=== PATIENT | female | born 1930 | race Caucasian/White ===

== ENCOUNTER 2018-03-19 07:08 | Emergency (ER) | payer MEDICARE ==
[2018-03-19 07:21] VITALS: O2SAT 98
--- NOTE | 2018-03-19 07:38 | ERPHSYRPT ---
- History of Present Illness Time Seen by Provider: 03/19/18 07:30 Source: patient Exam Limitations: no limitations Patient Subjective Stated Complaint: pt fell about a week ago, she lost balance going to bathroom in middle of night and fell against tub, no co pain to left hip Triage Nursing Assessment: pt arrived per wc, alert, resp easy, skin w/d/p. no bruising noted . Physician History: Patient states, she lost her balance and fell at 2 AM in her bathroom about a week ago [facility]. She fell on her buttock, started c/o left hip pain, increasing, when walking. She denies head or other injury, no LOC, headaches, chest pain, vomiting, or other complaints. She has been able to ambulate with walker, she has a history of hip replacement. Timing/Duration: week(s) (1) Occured at: home Context: fall Quality: sharpness Hip Pain Location: hip (L) Severity of Pain-Max: severe Severity of Pain-Current: mild Modifying Factors: Improves With: immobilization, movement Symptoms prior to fall: none Associated Symptoms: denies symptoms Allergies/Adverse Reactions: Penicillins Allergy (Verified 03/19/18 07:22) Home Medications: Celecoxib [Celebrex] 50 mg DAILY 03/19/18 [History] Glipizide [Glipizide ER] 2.5 mg DAILY 03/19/18 [History] Levothyroxine Sodium 25 mcg DAILY 03/19/18 [History] Metformin HCl 1,000 mg BID 03/19/18 [History] Pioglitazone HCl 30 mg DAILY 03/19/18 [History] Hx Influenza Vaccination/Date Given: No Hx Pneumococcal Vaccination/Date Given: No Immunizations Up to Date: Yes - Review of Systems Constitutional: No Symptoms Musculoskeletal: Fall, Other (left hip pain) All Other Systems: Reviewed and Negative - Past Medical History Pertinent Past Medical History: Yes Cardiac History: Hypertension Endocrine Medical History: Diabetes Type II Musculoskeletal History: Osteoporosis - Past Surgical History Past Surgical History: Yes Musculoskeletal: Orthopedic Surgery Other Surgical History: left hip replaced,foot surgery,carpal tunnel - Social History Smoking Status: Never smoker Exposure to second hand smoke: No Drug Use: none Patient Lives Alone: No - Female History Hx Last Menstrual Period: post Hx Now: No - Nursing Vital Signs Nursing Vital Signs: Initial Vital Signs Temperature 98.6 F 03/19/18 07:21 Pulse Rate 89 03/19/18 07:21 Respiratory Rate 16 03/19/18 07:21 Blood Pressure 153/70 03/19/18 07:21 O2 Sat by Pulse Oximetry 98 03/19/18 07:21 Pain Scale Pain Intensity 70 - Physical Exam General Appearance: no apparent distress Eye Exam: PERRL/EOMI Ears, Nose, Throat Exam: normal ENT inspection Neck Exam: normal inspection, non-tender Respiratory Exam: normal breath sounds, lungs clear, No chest tenderness Cardiovascular Exam: regular rate/rhythm, normal heart sounds Gastrointestinal Exam: soft, normal bowel sounds, No tenderness Back Exam: other (mild kyphosis), No CVA tenderness, No vertebral tenderness Extremity Exam: normal inspection, normal range of motion, other (mild posterior left hip tenderness, no swelling, bruises, or deformity, good distal pulses and sensation.) Neurologic Exam: alert, oriented x 3, normal mood/affect Skin Exam: normal color, warm, dry SpO2 Interpretation: normal SpO2: 98 Oxygen Delivery: Room Air - Course Nursing assessment & vital signs reviewed: Yes - Radiology Exams Left Hip X-ray Interpretation: Interpreted by me, Negative Ordered Tests: Active Orders 24 hr Category Date Time Status HIP UNI (2V) INCL PEL IF DONE Stat Exams 03/19/18 07:32 Taken - Progress Progress: unchanged Progress Note: 03/19/18 08:30 Pt has been comfortable, when lying, only c/o pain, when moving, she has been stable. I informed her about the X ray report, she is being discharged to rest and apply ice to painful area, take Motrin as needed and follow up with her PCP in 1 week, otherwise return if severe pain, swelling, sudden weakness, numbness of the lower extremity. Counseled pt/family regarding: diagnosis, need for follow-up, rad results - Departure Time of Disposition: 08:32 Departure Disposition: Home Clinical Impression: Contusion, hip Qualifiers: Encounter type: initial encounter Laterality: left Qualified Code(s): S70.02XA - Contusion of left hip, initial encounter Condition: Stable Critical Care Time: No Referrals: ANNA ROBIN MD [Primary Care Provider] - Instructions: Contusion (DC) Additional Instructions: Rest x 2-3 days, apply ice or cold compresses to painful area, return if severe pain, swelling, or sudden numbness, weakness of the leg! Prescriptions: Ibuprofen 200 mg [Motrin 200 mg] 400 mg PO Q6H PRN #15 tablet PRN Reason: Pain
[2018-03-19 08:59] VITALS: BP 145/57; PULSE 70
--- NOTE | 2018-03-19 09:09 | XRAY ---
Indication: Pain following fall. Comparison: Pelvis exam March 15, 2014. 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 No new/acute findings.
== END 2018-03-19 08:59 | disposition home or self-care (01) ==
LOC: ED 07:08
DX: S70.02XA Contusion of left hip, initial encounter (principal); M25.552 Pain in left hip; E11.9 Type 2 diabetes mellitus without complications; W01.198A Fall on same level from slipping, tripping and stumbling with subsequent striking against other object, initial encounter; Y93.F9 Activity, other caregiving; Y92.091 Bathroom in other non-institutional residence as the place of occurrence of the external cause; Z79.84 Long term (current) use of oral hypoglycemic drugs; Z79.899 Other long term (current) drug therapy
CPT/HCPCS: 73502; 99283

== ENCOUNTER 2018-11-03 08:21 | Emergency (ER) | payer MEDICARE ==
[2018-11-03] MEDS ORDERED: Sodium Chloride 0.9% 1000 ML 1,000 ML IV STA (08:30)
--- NOTE | 2018-11-03 08:37 | ERPHSYRPT ---
- History of Present Illness Time Seen by Provider: 11/03/18 08:34 Source: patient, family Patient Subjective Stated Complaint: PT states "I do not feel well.". Daughter states "she was diagnosed with a UTI a couple of weeks ago and she is on new medicine and she called me and said she was short of breath and having chills." Triage Nursing Assessment: PT alert and oriented X 3, skin pwd. PT ambulates with an unsteady gait, able to speak in clear full sentences. PT not a very good historian. Physician History: mild to mod one day hx of general weakness and confusion, hx uti, no injury, no fever, no NV, lives alone, no pain Allergies/Adverse Reactions: Penicillins Allergy (Verified 03/19/18 07:22) Home Medications: Cefdinir 300 mg PO DAILY 11/03/18 [History] Celecoxib [Celebrex] 200 mg PO DAILY 11/03/18 [History] Gabapentin 300 mg PO DAILY 11/03/18 [History] Glipizide [Glipizide ER] 2.5 mg PO DAILY 11/03/18 [History] Levothyroxine Sodium 25 mcg PO DAILY 11/03/18 [History] Pioglitazone HCl 30 mg PO DAILY 11/03/18 [History] Hx Tetanus, Diphtheria Vaccination/Date Given: No Hx Influenza Vaccination/Date Given: Yes Hx Pneumococcal Vaccination/Date Given: No Immunizations Up to Date: Yes - Review of Systems Constitutional: No Fever Eyes: No Vision Changes Ears, Nose, & Throat: No Symptoms Respiratory: No Cough, No Dyspnea Cardiac: No Chest Pain Abdominal/Gastrointestinal: No Abdominal Pain, No Vomiting Genitourinary Symptoms: Frequency Musculoskeletal: No Back Pain Skin: No Rash Neurological: Dizziness, No Focal Weakness, No Headache - Past Medical History Pertinent Past Medical History: Yes ENT History: Macular Degeneration Cardiac History: Hypertension Endocrine Medical History: Diabetes Type II Musculoskeletal History: Osteoporosis History: Other Other Medical History: UTI - Past Surgical History Past Surgical History: Yes Musculoskeletal: Orthopedic Surgery Other Surgical History: bilat hip replaced,foot surgery,carpal tunnel. hernia surgery - Social History Smoking Status: Never smoker Exposure to second hand smoke: No Drug Use: none Patient Lives Alone: Yes - Female History Hx Now: No - Nursing Vital Signs Nursing Vital Signs: Initial Vital Signs Temperature 97.1 F 11/03/18 08:24 Pulse Rate 69 05/07/19 08:24 Respiratory Rate 16 11/03/18 08:24 Blood Pressure 157/49 11/03/18 08:24 O2 Sat by Pulse Oximetry 98 11/03/18 08:24 Pain Scale Pain Intensity 0 - Physical Exam General Appearance: no apparent distress Eye Exam: PERRL/EOMI Ears, Nose, Throat Exam: moist mucous membranes Neck Exam: normal inspection, No meningismus Respiratory Exam: normal breath sounds, No respiratory distress Cardiovascular Exam: regular rate/rhythm Gastrointestinal/Abdomen Exam: soft, No tenderness Back Exam: normal inspection Extremity Exam: normal inspection Neurologic Exam: alert, oriented x 3, cooperative, nca certified concierge II-XII nml as tested Skin Exam: normal color, warm, dry SpO2 Interpretation: normal SpO2: 99 - Course Nursing assessment & vital signs reviewed: Yes EKG Interpreted by Me: Sinus Rhythm, Other (no stemi) - Radiology Exams Chest X-ray Interpretation: Discussed w/ radiologist, Negative - CT Exams Head CT Interpretation: Negative, Discussed w/radiologist Ordered Tests: Active Orders 24 hr Category Date Time Status EKG-ER Only STAT Care 11/03/18 08:30 Active IV Insertion STAT Care 11/03/18 08:30 Active CHEST 1 VIEW (PORTABLE) Stat Exams 11/03/18 08:32 Completed HEAD WITHOUT CONTRAST [CT] Stat Exams 11/03/18 08:32 Completed BLOOD CULTURE Stat Lab 11/03/18 08:45 Ordered CBC W DIFF Stat Lab 11/03/18 08:45 Completed CMP Stat Lab 11/03/18 08:45 Completed Lactic Acid Stat Lab 11/03/18 08:42 Completed Manual Differential NC Stat Lab 11/03/18 08:45 Completed TROPONIN Q3H Lab 11/03/18 08:45 Completed TROPONIN Q3H Lab 11/03/18 11:30 Ordered TROPONIN Q3H Lab 11/03/18 14:30 Ordered TROPONIN Q3H Lab 11/03/18 17:30 Ordered TROPONIN Q3H Lab 11/03/18 20:30 Ordered UA W/RFX UR CULTURE Stat Lab 11/03/18 08:54 Completed Medication Summary Discontinued Medications Generic Name Dose Route Start Last Admin Trade Name Freq PRN Reason Stop Dose Admin Sodium Chloride 1,000 mls @ 999 mls/hr 11/03/18 08:30 11/03/18 08:49 Sodium Chloride 0.9% 1000 Ml IV 11/03/18 09:30 999 mls/hr .Q1H1M STA Administration Sodium Chloride Confirm 11/03/18 08:47 Sodium Chloride 0.9% 1000 Ml Administered 11/03/18 08:48 Dose 1,000 mls @ .ROUTE .[facility] Lab/Rad Data: Laboratory Result Diagrams 11/03/18 08:45 11/03/18 08:45 Laboratory Results 11/03/18 11/03/18 11/03/18 Range/Units 08:54 08:45 08:45 WBC 8.4 (4.0-10.5) K/mm3 RBC 3.90 L (4.1-5.4) M/mm3 Hgb 11.4 L (12.0-16.0) gm/dl Hct 33.9 L (35-47) % MCV 86.9 (78-100) fl MCH 29.2 (26-32) pg MCHC 33.6 (32-36) g/dl RDW 13.4 (11.5-14.0) % Plt Count 452 H (150-450) K/mm3 MPV 8.2 (6-9.5) fl Gran % 69.0 H (36.0-66.0) % Eos # (Auto) 0.11 (0-0.5) Absolute Lymphs (auto) 1.90 (1.0-4.6) Absolute Monos (auto) 0.57 (0.0-1.3) Lymphocytes % 22.7 L (24.0-44.0) % Monocytes % 6.8 (0.0-12.0) % Eosinophils % 1.3 (0.00-5.0) % Basophils % 0.2 (0.0-0.4) % Absolute Granulocytes 5.78 (1.4-6.9) Basophils # 0.02 (0-0.4) Sodium 131 L (137-145) mmol/L Potassium 4.2 (3.5-5.1) mmol/L Chloride 95 L (98-107) mmol/L Carbon Dioxide 22 (22-30) mmol/L Anion Gap 18.3 H (5-15) MEQ/L BUN 18 H (7-17) mg/dL Creatinine 0.93 (0.52-1.04) mg/dL Estimated GFR > 60.0 ML/MIN Glucose 116 H (74-106) mg/dL Lactic Acid (0.4-2.0) Calcium 9.7 (8.4-10.2) mg/dL Total Bilirubin 0.40 (0.2-1.3) mg/dL AST 34 (14-36) U/L ALT 25 (0-35) U/L Alkaline Phosphatase 72 (38-126) U/L Troponin I (0.000-0.034) ng/mL Serum Total Protein 7.9 (6.3-8.2) g/dL Albumin 4.2 (3.5-5.0) g/dL Urine Color STRAW (YELLOW) Urine Appearance CLEAR (CLEAR) Urine pH 8.0 (5-6) Ur Specific Sol[place]ad 1.004 (1.005-1.025) Urine Protein NEGATIVE (Negative) Urine Ketones NEGATIVE (NEGATIVE) Urine Blood NEGATIVE (0-5) Quentin/ul Urine Nitrite NEGATIVE (NEGATIVE) Urine Bilirubin NEGATIVE (NEGATIVE) Urine Urobilinogen NEGATIVE (0-1) mg/dL Ur Leukocyte Esterase NEGATIVE (NEGATIVE) Urine WBC (Auto) 0-2 (0-5) /HPF Urine RBC (Auto) NONE (0-2) /HPF U Epithel Cells (Auto) RARE (FEW) /HPF Urine Bacteria (Auto) RARE (NEGATIVE) /HPF Urine Mucus (Auto) SLIGHT (NEGATIVE) /HPF Urine Culture Reflexed NO (NO) Urine Glucose NEGATIVE (NEGATIVE) mg/dL Slides for Path Review YES 11/03/18 11/03/18 Range/Units 08:45 08:42 WBC (4.0-10.5) K/mm3 RBC (4.1-5.4) M/mm3 Hgb (12.0-16.0) gm/dl Hct (35-47) % MCV (78-100) fl MCH (26-32) pg MCHC (32-36) g/dl RDW (11.5-14.0) % Plt Count (150-450) K/mm3 MPV (6-9.5) fl Gran % (36.0-66.0) % Eos # (Auto) (0-0.5) Absolute Lymphs (auto) (1.0-4.6) Absolute Monos (auto) (0.0-1.3) Lymphocytes % (24.0-44.0) % Monocytes % (0.0-12.0) % Eosinophils % (0.00-5.0) % Basophils % (0.0-0.4) % Absolute Granulocytes (1.4-6.9) Basophils # (0-0.4) Sodium (137-145) mmol/L Potassium (3.5-5.1) mmol/L Chloride (98-107) mmol/L Carbon Dioxide (22-30) mmol/L Anion Gap (5-15) MEQ/L BUN (7-17) mg/dL Creatinine (0.52-1.04) mg/dL Estimated GFR ML/MIN Glucose (74-106) mg/dL Lactic Acid 1.5 (0.4-2.0) Calcium (8.4-10.2) mg/dL Total Bilirubin (0.2-1.3) mg/dL AST (14-36) U/L ALT (0-35) U/L Alkaline Phosphatase (38-126) U/L Troponin I < 0.012 (0.000-0.034) ng/mL Serum Total Protein (6.3-8.2) g/dL Albumin (3.5-5.0) g/dL Urine Color (YELLOW) Urine Appearance (CLEAR) Urine pH (5-6) Ur Specific Soledad (1.005-1.025) Urine Protein (Negative) Urine Ketones (NEGATIVE) Urine Blood (0-5) Quentin/ul Urine Nitrite (NEGATIVE) Urine Bilirubin (NEGATIVE) Urine Urobilinogen (0-1) mg/dL Ur Leukocyte Esterase (NEGATIVE) Urine WBC (Auto) (0-5) /HPF Urine RBC (Auto) (0-2) /HPF U Epithel Cells (Auto) (FEW) /HPF Urine Bacteria (Auto) (NEGATIVE) /HPF Urine Mucus (Auto) (NEGATIVE) /HPF Urine Culture Reflexed (NO) Urine Glucose (NEGATIVE) mg/dL Slides for Path Review - Progress Progress: improved Progress Note: 11/03/18 09:42 differential dw pt and family as tia, dehydration, pt to continue daily aspirin , see Dr Aldana, return if worse, pt and family refused admission or transfer at this time Discussed with : Gabriele Will see patient in: office - Departure Departure Disposition: Home Clinical Impression: Weak Condition: Stable Critical Care Time: No
[2018-11-03] MEDS ORDERED: Sodium Chloride 0.9% 1000 ML 1,000 ML ONE (08:47)
[2018-11-03 08:58] LABS: BASOPHIL % 0.2 % (0.0-0.4); Basophil (Absolute #) 0.02 (0-0.4); Eosinophil % 1.3 % (0.00-5.0); Eosinophil (Absolute #) 0.11 (0-0.5); Granulocyte Absolute (ANC) 5.78 (1.4-6.9); Hematocrit 33.9 % (35-47); Hemoglobin 11.4 gm/dl (12.0-16.0); Lymphocytes % 22.7 % (24.0-44.0); Mean Cell Volume 86.9 fl (78-100); Mean Corpuscular Hemoglobin 29.2 pg (26-32); Mean Corpuscular Hgb Concent. 33.6 g/dl (32-36); Mean Platelet Volume 8.2 fl (6-9.5); Monocyte (Absolute #) 0.57 (0.0-1.3); Monocytes % 6.8 % (0.0-12.0); Platelet Count 452 K/mm3 (150-450); Red Cell Distribution Width 13.4 % (11.5-14.0); White Blood Count 8.4 K/mm3 (4.0-10.5)
[2018-11-03 08:59] LABS: Appearance CLEAR (CLEAR); Bilirubin NEGATIVE (NEGATIVE); Blood NEGATIVE Ery/ul (0-5); Glucose NEGATIVE (NEGATIVE); Ketones NEGATIVE (NEGATIVE); Leukocyte Esterase NEGATIVE (NEGATIVE); Mucus SLIGHT /HPF (NEGATIVE); Nitrite NEGATIVE (NEGATIVE); Protein,Urine Dip NEGATIVE (Negative); Specific Gravity 1.004 (1.005-1.025); Urobilinogen NEGATIVE mg/dL (0-1); WBC 0-2 /HPF (0-5)
[2018-11-03 09:08] LABS: ALBUMIN 4.2 g/dL (3.5-5.0); ALKALINE PHOSPHATASE 72 U/L (38-126); ANION GAP 18.3 MEQ/L (5-15); BLOOD UREA NITROGEN 18 mg/dL (7-17); CHLORIDE 95 mmol/L (98-107); Calcium 9.7 mg/dL (8.4-10.2); Carbon Dioxide 22 mmol/L (22-30); Creatinine 1 0.93 mg/dL (0.52-1.04); Glucose 116 mg/dL (74-106); Potassium 4.2 mmol/L (3.5-5.1); SGOT/AST 34 U/L (14-36); SGPT/ALT 25 U/L (0-35); SODIUM 131 mmol/L (137-145); Total Protein 7.9 g/dL (6.3-8.2)
[2018-11-03 09:14] LABS: Bacteria RARE /HPF (NEGATIVE); Epithelial Cells RARE /HPF (FEW)
--- NOTE | 2018-11-03 09:17 | XRAY ---
Indication: Weakness. Chills. Comparison: None Portable chest demonstrates normal heart and lungs. Bony thorax intact with mild osteopenia.
--- NOTE | 2018-11-03 09:19 | XRAY ---
Indication: Weakness. Altered mental status. Multiple contiguous axial images obtained through the head without contrast. Comparison: None Age-appropriate global atrophy and moderate periventricular degenerative micro-ischemia bilaterally. No acute intracranial hemorrhage, abnormal extra-axial fluid collection, or mass effect. Fourth ventricle is midline without hydrocephalus. Bony calvarium intact. Visualized paranasal sinuses and mastoid air cells are clear. Impression: Nonacute senile brain. CT DI 70.38
[2018-11-03 09:24] LABS: Slide Review 1 YES
[2018-11-03 09:57] VITALS: BP 159/57; PULSE 75; O2SAT 98
== END 2018-11-03 10:14 | disposition home or self-care (01) ==
LOC: ED 08:21
DX: R53.1 Weakness (principal); E11.9 Type 2 diabetes mellitus without complications; M81.0 Age-related osteoporosis without current pathological fracture; I10 Essential (primary) hypertension; Z87.440 Personal history of urinary (tract) infections
CPT/HCPCS: 36000; 36415; 70450; 71045; 80053; 81001; 83605; 84484; 85025; 87040; 93005; 93041; 96360; 96374; 99284

== ENCOUNTER 2019-03-20 07:15 | Emergency (ER) | payer MEDICARE ==
[2019-03-20 07:27] VITALS: PULSE 77; O2SAT 96
--- NOTE | 2019-03-20 07:39 | ERPHSYRPT ---
- History of Present Illness Time Seen by Provider: 03/20/19 07:38 Source: patient, family Exam Limitations: no limitations Patient Subjective Stated Complaint: Pt got up to use the restroom and lost her balance and fell on her right wrist, swelling and tenderness, unable to use Triage Nursing Assessment: Pt wheeled into ER, right wrist swollen, hypertensive , pulses normal, capillary refill normal, rates pain 6/10, denies any other injuries Occurred: this morning Method of Injury: fell Quality: constant Severity of Pain-Max: moderate Severity of Pain-Current: moderate Extremities Pain Location: wrist: right Modifying Factors: Improves With: immobilization, movement Associated Symptoms: none, No back pain, No chest discomfort, No chest pain, No jaw pain, No nausea, No neck pain, No sweating Allergies/Adverse Reactions: Penicillins Allergy (Verified 03/20/19 07:27) Home Medications: Celecoxib [Celebrex] 200 mg PO DAILY 11/03/18 [History] Gabapentin 300 mg PO DAILY 11/03/18 [History] Glipizide [Glipizide ER] 2.5 mg PO DAILY 11/03/18 [History] Levothyroxine Sodium 25 mcg PO DAILY 11/03/18 [History] Pioglitazone HCl 30 mg PO DAILY 11/03/18 [History] Metformin HCl 1,000 mg PO BID 03/20/19 [History] Oxybutynin Chloride 5 mg [Ditropan 5 MG] 5 mg PO BID 03/20/19 [History] Pravastatin Sodium 10 mg PO DAILY 03/20/19 [History] Hx Tetanus, Diphtheria Vaccination/Date Given: No Hx Influenza Vaccination/Date Given: Yes Hx Pneumococcal Vaccination/Date Given: No - Review of Systems Constitutional: No Fever, No Chills Eyes: No Symptoms Ears, Nose, & Throat: No Symptoms Respiratory: No Cough, No Dyspnea Cardiac: No Chest Pain, No Edema, No Syncope Abdominal/Gastrointestinal: No Abdominal Pain, No Nausea, No Vomiting, No Diarrhea Genitourinary Symptoms: No Dysuria Musculoskeletal: Fall, Other (right wrist: Painful, tender, deformity, painful range of motion, no laceration.), No Back Pain, No Neck Pain Skin: No Rash Neurological: No Dizziness, No Focal Weakness, No Sensory Changes Psychological: No Symptoms Endocrine: No Symptoms All Other Systems: Reviewed and Negative - Past Medical History Pertinent Past Medical History: Yes ENT History: Macular Degeneration Cardiac History: Hypertension Endocrine Medical History: Diabetes Type II Musculoskeletal History: Osteoporosis History: Other Other Medical History: UTI - Past Surgical History Past Surgical History: Yes Musculoskeletal: Orthopedic Surgery Other Surgical History: bilat hip replaced,foot surgery,carpal tunnel. hernia surgery - Social History Smoking Status: Never smoker Exposure to second hand smoke: No Drug Use: none Patient Lives Alone: Yes - Female History Hx Now: No - Nursing Vital Signs Nursing Vital Signs: Initial Vital Signs Temperature 98.8 F 03/20/19 07:19 Pulse Rate 77 03/20/19 07:19 Blood Pressure 177/64 03/20/19 07:19 O2 Sat by Pulse Oximetry 96 03/20/19 07:19 Pain Scale Pain Intensity 6 - Physical Exam General Appearance: alert Eyes, Ears, Nose, Throat Exam: moist mucous membranes Neck Exam: non-tender, supple Cardiovascular/Respiratory Exam: chest non-tender, normal breath sounds, regular rate/rhythm, no respiratory distress Abdominal Exam: non-tender, No guarding Back Exam: normal inspection, No vertebral tenderness Wrist Exam: bone tenderness, limited ROM, pain (right wrist: Painful, tender, deformity, painful range of motion, no laceration.Normal distal NV function), soft tissue tenderness, swelling Neuro/Tendon Exam: normal sensation, normal motor functions Mental Status Exam: alert, oriented x 3, cooperative Skin Exam: normal color, warm, dry SpO2: 96 O2 Delivery: Room Air - Course Nursing assessment & vital signs reviewed: Yes - Radiology Exams Right Wrist X-ray Interpretation: Interpreted by me, Other (right scapholunate dissociation , could be old. Right distal radius hairline fracture, could be old with a superimposed in a fracture. The right distal ulna avulsion fracture.) Ordered Tests: Active Orders 24 hr Category Date Time Status Splint STAT Care 03/20/19 08:21 Active WRIST (MIN 3 VIEWS) Stat Exams 03/20/19 07:54 Taken Medication Summary Discontinued Medications Generic Name Dose Route Start Last Admin Trade Name Freq PRN Reason Stop Dose Admin Hydrocodone Bitart/Acetaminophen 1 tab 03/20/19 07:48 03/20/19 07:51 Foster 5/325 Mg PO 03/20/19 07:49 1 tab STAT ONE Administration Hydrocodone Bitart/Acetaminophen Confirm 03/20/19 07:51 Foster 5/325 Mg Administered 03/20/19 07:52 Dose 1 tab .ROUTE .[facility] - Progress Progress: improved Progress Note: 03/20/19 08:34 advised patient to see ortho on Friday. Discussed with : Other Counseled pt/family regarding: diagnosis, need for follow-up, rad results - Departure Departure Disposition: Home Clinical Impression: Scapho-lunate dissociation Qualifiers: Laterality: right Qualified Code(s): M25.331 - Other instability, right wrist Distal radial fracture Qualifiers: Encounter type: initial encounter Fracture type: closed Fracture morphology: Colles' Laterality: right Qualified Code(s): S52.531A - Colles' fracture of right radius, initial encounter for closed fracture Distal end of ulna fracture, closed Qualifiers: Encounter type: initial encounter Fracture morphology: other fracture Laterality: right Qualified Code(s): S52.691A - Other fracture of lower end of right ulna, initial encounter for closed fracture Condition: Stable Critical Care Time: No Referrals: ANNA ROBIN MD [Primary Care Provider] - 03/22/19 (See Ortho on Friday at [facility]. Call [phone]) Plan of Treatment: See Ortho on Friday03/22/19 Prescriptions: Hydrocodone/APAP 5-325 Tab^^^ [Foster 5-325 Tablet^^^] 1 each PO TID PRN 3 Days # 9 tablet MDD 6 PRN Reason: Pain
[2019-03-20] MEDS ORDERED: NORCO 5/325 MG PO ONE (07:48)
[2019-03-20] MEDS ORDERED: NORCO 5/325 MG ONE (07:51)
[2019-03-20 08:14] VITALS: BP 164/72
--- NOTE | 2019-03-20 09:06 | XRAY ---
Indication: Pain and swelling following fall. Comparison: None 3 views of the right wrist demonstrates slightly comminuted fracture involving distal radius with intra-articular extension, nondisplaced ulnar styloid fracture, and soft tissue swelling. Elsewhere osteopenia, 1st metacarpal multangular scaphoid degenerative changes, abnormal widened scapholunate articulation worrisome for underlying ligamentous tear, and scattered vascular calcifications.
== END 2019-03-20 08:46 | disposition home or self-care (01) ==
LOC: ED 07:15
DX: M25.331 Other instability, right wrist (principal); S52.691A Other fracture of lower end of right ulna, initial encounter for closed fracture; W01.198A Fall on same level from slipping, tripping and stumbling with subsequent striking against other object, initial encounter; M25.431 Effusion, right wrist
CPT/HCPCS: 73110; 99283; A9270-GY

== ENCOUNTER 2020-08-30 12:10 | Inpatient (IN) | payer MEDICARE ==
[2020-08-30] MEDS ORDERED: Aplisol ID ONE (18:28)
[2020-08-30] MEDS ORDERED: TYLENOL EXTRA STRENGTH 500 MG PO PRN (21:04)
[2020-08-30] MEDS ORDERED: Namenda 5 MG PO SCH (22:00)
[2020-08-30] MEDS: FEOSOL 325 MG PO SCH (23:35)
--- NOTE | 2020-08-31 08:56 | PCM.HP ---
History of Present Illness - Chief Complaint Chief Complaint: DECONDITIONING R/T UTI, CKD History of Present Illness: is a 89 year old female recently hospitalized at [facility] for UTI with ESBL+ culture, has received meropenem prior to arrival. she is in swingbed for weakness, deconditioning and to attempt to return to prior level of functioning. - Review of Systems Constitutional: No Fever, No Chills Respiratory: No Cough, No Short Of Breath Cardiac: No Chest Pain, No Edema, No Syncope All Other Systems: Reviewed and Negative Medications & Allergies Home Medications: Home Medication List Levothyroxine Sodium 25 mcg PO 0600 11/03/18 [History Confirmed 08/31/20] Oxybutynin Chloride 5 mg [Ditropan 5 MG] 5 mg PO DAILY 03/20/19 [History Confirmed 08/31/20] Pravastatin Sodium 10 mg PO DAILY 03/20/19 [History Confirmed 08/31/20] Acetaminophen 500 mg [Tylenol Extra Strength 500 mg] 1,000 mg PO Q4HPRN IA N 08/31/20 [History Confirmed 08/31/20] Alendronate Sodium 70 mg [Fosamax 70 MG] 70 mg PO Q7D@0600 08/31/20 [History Confirmed 08/31/20] Aspirin [Aspirin EC] 81 mg PO DAILY 08/31/20 [History Confirmed 08/31/20] Calcium Carbonate 600 mg PO DAILY 08/31/20 [History Confirmed 08/31/20] Cyanocobalamin 1000 Mcg/ml [Cyanocobalamin B-12 1000 MCG/ML] 1,000 mcg IM UD 08/31/20 [History Confirmed 08/31/20] Ertapenem Sodium 1 gm [Invanz 1 GM] 1 g IV DAILY 08/31/20 [History Confirmed 08/31/20] Ferrous Sulfate 325 mg [Feosol 325 mg] 325 mg PO BID 08/31/20 [History Confirmed 08/31/20] Insulin Lispro [Humalog] 1 unit SQ UD PRN 08/31/20 [History Confirmed 08/31/20] Memantine HCl [Namenda] 10 mg PO BID 08/31/20 [History Confirmed 08/31/20] Omeprazole 20 mg PO DAILY 08/31/20 [History Confirmed 08/31/20] Allergies/Adverse Reactions: Allergies Allergy/AdvReac Type Severity Reaction Status Date / Time Penicillins Allergy Verified 03/20/19 07:27 - Past Medical History Past Medical History: Yes Neurological History: Dementia, Peripheral Neuropathy ENT History: Macular Degeneration Cardiac History: No Pertinent History Respiratory History: No Pertinent History Endocrine Medical History: Diabetes Type II, Hyperthyroidism Musculoskelatal History: Arthritis, Fractures GI Medical History: No Pertinent History History: Renal Disease Comment: HX R FEMUR FX W/ ORIF SEVERAL YEARS AGO Chronic UTI;Sees Dr Lorenzana. FX L ft current. FX R wrist. Anemia - Past Surgical History Past Surgical History: Yes Respiratory Surgery: Other Musculskeletal Surgical Hx: Orthopedic Surgery Other Surgical History: bilat hip replaced,foot surgery,carpal tunnel. hernia surgery. breast mass removed - Social History Smoking Status: Never smoker Exposure to second hand smoke: No Alcohol: None Drug Use: none - Physical Exam Vital Signs: Vital Signs - 24 hr Temp Pulse Resp BP Pulse Ox 08/31/20 07:19 98.7 F 80 18 171/73 100 08/30/20 20:00 98.7 F 80 18 141/70 100 General Appearance: no apparent distress Neurologic Exam: alert, cooperative, No oriented x 3 (disoriented to place and time, pleasant) Respiratory Exam: normal breath sounds, lungs clear, No respiratory distress Cardiovascular Exam: regular rate/rhythm, normal heart sounds, normal peripheral pulses Gastrointestinal/Abdomen Exam: soft, normal bowel sounds, No tenderness, No mass Extremity Exam: normal inspection, normal range of motion, pelvis stable Skin Exam: normal color, warm, dry, No rash Results - Labs Lab/Micro Results: Lab Results-Last 24 Hours 08/30/20 08/31/20 Range/Units 23:36 07:10 POC Glucometer 188 H 143 H (74 to 106) mg/dL Accuchecks Date 08/31/20 Time 07:10 Assessment/Plan (1) UTI due to extended-spectrum beta lactamase (ESBL) producing Escherichia coli Current Visit: Yes Status: Acute Assessment & Plan: invanz 1g daily, tolerated meropenem in spite of pcn allergy Code(s): N39.0 - URINARY TRACT INFECTION, SITE NOT SPECIFIED; B96.29 - OTH ESCHERICHIA COLI THE CAUSE OF DISEASES CLASSD ELSWHR; Z16.12 - EXTENDED SPECTRUM BETA LACTAMASE (ESBL) RESISTANCE (2) Acute delirium Current Visit: Yes Status: Acute Assessment & Plan: likely underlying dementia and UTI are cofactors Code(s): R41.0 - DISORIENTATION, UNSPECIFIED (3) Weakness Current Visit: Yes Status: Acute Assessment & Plan: PT Code(s): R53.1 - WEAKNESS
[2020-08-31] MEDS ORDERED: ERTAPENEM SODIUM 1 GM IV SCH (10:00)
[2020-08-31] MEDS ORDERED: Aplisol ID SCH (10:00)
[2020-08-31] MEDS: Ditropan 5 MG PO SCH (10:06)
[2020-08-31] MEDS: Protonix 40MG Tablet PO SCH (10:06)
[2020-08-31] MEDS: Namenda 5 MG PO SCH ×2 (10:06→22:00)
[2020-08-31] MEDS: ECOTRIN 81 MG PO SCH (10:06)
[2020-08-31] MEDS: Invanz 1 GM*** 1 G in Sodium Chloride 100ML MINI-BAG PLUS 100 ML IV SCH (10:06)
[2020-08-31] MEDS: FEOSOL 325 MG PO SCH ×2 (10:06→21:58)
[2020-08-31] MEDS: Zocor 10MG PO SCH (10:07)
[2020-08-31] MEDS: SYNTHROID 25 MCG PO SCH (11:35)
[2020-08-31] MEDS: HUMALOG SQ PRN ×2 (12:27→17:30)
[2020-08-31] MEDS ORDERED: NORVASC 5 MG PO ONE (14:11)
[2020-09-01 05:26] LABS: Hematocrit 29.5 % (35-47); Hemoglobin 9.2 gm/dl (12.0-16.0); Mean Cell Volume 88.3 fl (78-100); Mean Corpuscular Hemoglobin 27.5 pg (26-32); Mean Corpuscular Hgb Concent. 31.2 g/dl (32-36); Mean Platelet Volume 8.5 fl (7.5-11.0); Platelet Count 410 K/mm3 (150-450); Red Blood Count 3.34 M/mm3 (4.1-5.4); Red Cell Distribution Width 14.2 % (11.5-14.0); White Blood Count 8.1 K/mm3 (4.0-10.5)
[2020-09-01 05:38] LABS: ALBUMIN 3.4 g/dL (3.5-5.0); ANION GAP 9.6 MEQ/L (5-15); BILIRUBIN,TOTAL 0.3 mg/dL (0.2-1.3); Calcium 9.1 mg/dL (8.4-10.2); Creatinine 1 1.06 mg/dL (0.52-1.04); Potassium 3.8 mmol/L (3.5-5.1); Total Protein 6.6 g/dL (6.3-8.2)
[2020-09-01] MEDS: SYNTHROID 25 MCG PO SCH (06:14)
[2020-09-01 07:24] LABS: Eosinophil 6 % (0.00-3.0); Lymphocytes 40 % (24-44); Monocyte 5 % (0.0-12.0); Neutrophils 49 % (36.0-66.0); Total Cells Counted 100
[2020-09-01 07:25] LABS: ANISOCYTOSIS 1+; Hypochromia 1+; Platelet Estimate NORMAL (NORMAL); Poikilocytosis 1+
[2020-09-01] MEDS: ECOTRIN 81 MG PO SCH (09:28)
[2020-09-01] MEDS: Protonix 40MG Tablet PO SCH (09:28)
[2020-09-01] MEDS: FEOSOL 325 MG PO SCH ×2 (09:28→21:05)
[2020-09-01] MEDS: Ditropan 5 MG PO SCH (09:29)
[2020-09-01] MEDS: Namenda 5 MG PO SCH ×2 (09:29→21:05)
[2020-09-01] MEDS: NORVASC 5 MG PO SCH (09:29)
[2020-09-01] MEDS: Zocor 10MG PO SCH (09:29)
--- NOTE | 2020-09-01 10:18 | PCM.NOTE ---
Date and Time: 09/01/20 1017 Subjective Assessment: patient remains pleasantly confused, oriented to self but not place or time. denies pain, states she feels well Objective Exam General Appearance: no apparent distress, alert Neurologic Exam: alert, cooperative, No oriented x 3 Skin Exam: normal color, warm, dry Respiratory Exam: normal breath sounds, lungs clear, No respiratory distress Cardiovascular Exam: regular rate/rhythm, normal heart sounds Gastrointestinal/Abdomen Exam: soft, No tenderness, No mass OBJECTIVE DATA Vital Signs: Vital Signs - 24 hr Temp Pulse Resp BP Pulse Ox 09/01/20 07:00 98.4 F 90 18 173/70 97 08/31/20 23:00 97 F 100 H 18 144/63 97 08/31/20 15:00 84 153/69 08/31/20 11:51 98.5 F 76 16 181/77 99 Pain Assessment - Last Documented Pain Intensity 0 Pain Scale Used 0-10 Pain Scale,FLACC Intake and Output: Intake & Output 08/29/20 08/30/20 08/31/20 09/01/20 11:59 11:59 11:59 11:59 Intake Total 200 640 Balance 200 640 Weight 54.8 kg 54.5 kg Lab Results: Lab Results-Last 24 Hours 08/31/20 08/31/20 08/31/20 Range/Units 11:30 16:25 20:06 WBC (4.0-10.5) K/mm3 RBC (4.1-5.4) M/mm3 Hgb (12.0-16.0) gm/dl Hct (35-47) % MCV (78-100) fl MCH (26-32) pg MCHC (32-36) g/dl RDW (11.5-14.0) % Plt Count (150-450) K/mm3 MPV (7.5-11.0) fl Segmented Neutrophils (36.0-66.0) % Lymphocytes (Manual) (24-44) % Monocytes (Manual) (0.0-12.0) % Eosinophils (Manual) (0.00-3.0) % Hypochromia Platelet Estimate (NORMAL) RBC Morphology Poikilocytosis Anisocytosis Sodium (137-145) mmol/L Potassium (3.5-5.1) mmol/L Chloride (98-107) mmol/L Carbon Dioxide (22-30) mmol/L Anion Gap (5-15) MEQ/L BUN (7-17) mg/dL Creatinine (0.52-1.04) mg/dL Estimated GFR ML/MIN Glucose (74-106) mg/dL POC Glucometer 289 H 234 H 189 H (74 to 106) mg/dL Calcium (8.4-10.2) mg/dL Total Bilirubin (0.2-1.3) mg/dL AST (14-36) U/L ALT (0-35) U/L Alkaline Phosphatase (38-126) U/L Serum Total Protein (6.3-8.2) g/dL Albumin (3.5-5.0) g/dL 09/01/20 09/01/20 09/01/20 Range/Units 04:30 04:30 07:32 WBC 8.1 (4.0-10.5) K/mm3 RBC 3.34 L (4.1-5.4) M/mm3 Hgb 9.2 L (12.0-16.0) gm/dl Hct 29.5 L (35-47) % MCV 88.3 (78-100) fl MCH 27.5 (26-32) pg MCHC 31.2 L (32-36) g/dl RDW 14.2 H (11.5-14.0) % Plt Count 410 (150-450) K/mm3 MPV 8.5 (7.5-11.0) fl Segmented Neutrophils 49 (36.0-66.0) % Lymphocytes (Manual) 40 (24-44) % Monocytes (Manual) 5 (0.0-12.0) % Eosinophils (Manual) 6 H (0.00-3.0) % Hypochromia 1+ Platelet Estimate NORMAL (NORMAL) RBC Morphology ABNORMAL Poikilocytosis 1+ Anisocytosis 1+ Sodium 132 L (137-145) mmol/L Potassium 3.8 (3.5-5.1) mmol/L Chloride 103 (98-107) mmol/L Carbon Dioxide 24 (22-30) mmol/L Anion Gap 9.6 (5-15) MEQ/L BUN 20 H (7-17) mg/dL Creatinine 1.06 H (0.52-1.04) mg/dL Estimated GFR 52.0 ML/MIN Glucose 153 H (74-106) mg/dL POC Glucometer 136 H (74 to 106) mg/dL Calcium 9.1 (8.4-10.2) mg/dL Total Bilirubin 0.30 (0.2-1.3) mg/dL AST 49 H (14-36) U/L ALT 41 H (0-35) U/L Alkaline Phosphatase 62 (38-126) U/L Serum Total Protein 6.6 (6.3-8.2) g/dL Albumin 3.4 L (3.5-5.0) g/dL Multi-Disciplinary Progress Notes: Multi-Disciplinary Progress Notes 09/01/20 08:33 Case Management Note by Gissell Lee S/W PATIENT'S FAMILY YEST.- PLAN TO MAXIMIZE SWINGBED DAYS TO WORK WITH THERAPY TO HOPEFULLY BE ABLE TO RETURN TO ASSISTED LIVING AT TIME OF DC Initialized on 09/01/20 08:33 - END OF NOTE 08/31/20 11:27 Case Management Note by Gissell Lee PATIENT HAS [facility]. THEY WILL NEED NOTIFIED AT TIME OF DC AT [phone]. THEY WILL NEED FAXED THE DC INSTRUCTIONS, DC MED LIST AND DC SUMMARY (IF AVAILAB LE) TO [phone] Initialized on 08/31/20 11:27 - END OF NOTE Assessment/Plan (1) UTI due to extended-spectrum beta lactamase (ESBL) producing Escherichia coli Current Visit: Yes Status: Acute Assessment & Plan: on invanz Code(s): N39.0 - URINARY TRACT INFECTION, SITE NOT SPECIFIED; B96.29 - OTH ESCHERICHIA COLI THE CAUSE OF DISEASES CLASSD ELSWHR; Z16.12 - EXTENDED SPECTRUM BETA LACTAMASE (ESBL) RESISTANCE (2) Acute delirium Current Visit: Yes Status: Acute Code(s): R41.0 - DISORIENTATION, UNSPECIFIED (3) Weakness Current Visit: Yes Status: Acute Code(s): R53.1 - WEAKNESS
[2020-09-01] MEDS: Invanz 1 GM*** 1 G in Sodium Chloride 100ML MINI-BAG PLUS 100 ML IV SCH (10:36)
[2020-09-01] MEDS: HUMALOG SQ PRN (12:34)
[2020-09-01 15:29] LABS: 027 TOX PROD PRESUMPTIVE NEGATIVE (NEGATIVE); TOXIGENIC C. DIFF ORG NEGATIVE (NEGATIVE)
[2020-09-02] MEDS: SYNTHROID 25 MCG PO SCH (06:38)
[2020-09-02] MEDS: Invanz 1 GM*** 1 G in Sodium Chloride 100ML MINI-BAG PLUS 100 ML IV SCH (09:14)
[2020-09-02] MEDS: Ditropan 5 MG PO SCH (09:15)
[2020-09-02] MEDS: Zocor 10MG PO SCH (09:15)
[2020-09-02] MEDS: Namenda 5 MG PO SCH ×2 (09:15→21:17)
[2020-09-02] MEDS: FEOSOL 325 MG PO SCH ×2 (09:15→21:17)
[2020-09-02] MEDS: Protonix 40MG Tablet PO SCH (09:15)
[2020-09-02] MEDS: ECOTRIN 81 MG PO SCH (09:15)
[2020-09-02] MEDS: NORVASC 5 MG PO SCH (09:15)
[2020-09-02] MEDS ORDERED: Cyanocobalamin B-12 1000 MCG/ML IM SCH (10:00)
[2020-09-02] MEDS: HUMALOG SQ PRN (17:09)
[2020-09-03] MEDS: SYNTHROID 25 MCG PO SCH (05:51)
[2020-09-03] MEDS: Ditropan 5 MG PO SCH (09:27)
[2020-09-03] MEDS: Zocor 10MG PO SCH (09:27)
[2020-09-03] MEDS: FEOSOL 325 MG PO SCH ×2 (09:27→21:05)
[2020-09-03] MEDS: Invanz 1 GM*** 1 G in Sodium Chloride 100ML MINI-BAG PLUS 100 ML IV SCH (09:27)
[2020-09-03] MEDS: Namenda 5 MG PO SCH ×2 (09:27→21:05)
[2020-09-03] MEDS: Protonix 40MG Tablet PO SCH (09:27)
[2020-09-03] MEDS: NORVASC 5 MG PO SCH (09:27)
[2020-09-03] MEDS: ECOTRIN 81 MG PO SCH (09:27)
[2020-09-04] MEDS: SYNTHROID 25 MCG PO SCH (06:10)
--- NOTE | 2020-09-04 08:23 | PCM.NOTE ---
Date and Time: 09/04/20820 Subjective Assessment: patient remains confused, no distress. no pain, tolerating po intake. she is cooperative and pleasant this morning Objective Exam General Appearance: no apparent distress Neurologic Exam: alert, No oriented x 3 Respiratory Exam: normal breath sounds, lungs clear, No respiratory distress Cardiovascular Exam: regular rate/rhythm, normal heart sounds Gastrointestinal/Abdomen Exam: soft, No tenderness, No mass OBJECTIVE DATA Vital Signs: Vital Signs - 24 hr Temp Pulse Resp BP Pulse Ox 09/04/20 07:33 98.4 F 88 16 141/65 95 09/03/20 19:29 98.1 F 84 17 134/63 98 Pain Assessment - Last Documented Pain Intensity 0 Pain Scale Used 0-10 Pain Scale,FLACC Intake and Output: Intake & Output 09/01/20 09/02/20 09/03/20 09/04/20 11:59 11:59 11:59 11:59 Intake Total 640 200 340 Balance 640 200 340 Weight 54.5 kg 54.5 kg 55.2 kg Lab Results: Lab Results-Last 24 Hours 09/03/20 09/03/20 09/03/20 Range/Units 11:25 16:15 20:46 POC Glucometer 146 H 169 H 171 H (74 to 106) mg/dL 09/04/20 Range/Units 07:27 POC Glucometer 142 H (74 to 106) mg/dL Assessment/Plan (1) UTI due to extended-spectrum beta lactamase (ESBL) producing Escherichia coli Current Visit: Yes Status: Acute Assessment & Plan: today will have completed 5 days of ertapenem in addition to meropenem treatment she received at [facility], UTI has been sufficiently treated and will d/c IV antibiotics Code(s): N39.0 - URINARY TRACT INFECTION, SITE NOT SPECIFIED; B96.29 - OTH ESCHERICHIA COLI THE CAUSE OF DISEASES CLASSD ELSWHR; Z16.12 - EXTENDED SPECTRUM BETA LACTAMASE (ESBL) RESISTANCE (2) Acute delirium Current Visit: Yes Status: Acute Assessment & Plan: confusion not clearing, will continue to monitor Code(s): R41.0 - DISORIENTATION, UNSPECIFIED (3) Weakness Current Visit: Yes Status: Acute Code(s): R53.1 - WEAKNESS
[2020-09-04] MEDS: Namenda 5 MG PO SCH ×2 (10:42→21:31)
[2020-09-04] MEDS: Protonix 40MG Tablet PO SCH (10:42)
[2020-09-04] MEDS: Zocor 10MG PO SCH (10:42)
[2020-09-04] MEDS: ECOTRIN 81 MG PO SCH (10:42)
[2020-09-04] MEDS: Ditropan 5 MG PO SCH (10:42)
[2020-09-04] MEDS: NORVASC 5 MG PO SCH (10:42)
[2020-09-04] MEDS: FEOSOL 325 MG PO SCH ×2 (10:42→21:31)
[2020-09-04] MEDS: HUMALOG SQ PRN (21:32)
[2020-09-05 04:54] LABS: Hematocrit 30.8 % (35-47); Hemoglobin 9.4 gm/dl (12.0-16.0); Mean Cell Volume 91.1 fl (78-100); Mean Corpuscular Hemoglobin 27.8 pg (26-32); Mean Corpuscular Hgb Concent. 30.5 g/dl (32-36); Platelet Count 497 K/mm3 (150-450); Red Blood Count 3.38 M/mm3 (4.1-5.4); Red Cell Distribution Width 14.6 % (11.5-14.0)
[2020-09-05 06:08] LABS: Eosinophil 1 % (0.00-3.0); Lymphocytes 28 % (24-44); Neutrophils 71 % (36.0-66.0); Total Cells Counted 100
[2020-09-05 06:09] LABS: Platelet Estimate NORMAL (NORMAL)
[2020-09-05 06:12] LABS: ALBUMIN 3.5 g/dL (3.5-5.0); ALKALINE PHOSPHATASE 74 U/L (38-126); ANION GAP 13.6 MEQ/L (5-15); BLOOD UREA NITROGEN 26 mg/dL (7-17); CHLORIDE 102 mmol/L (98-107); Calcium 9.3 mg/dL (8.4-10.2); Carbon Dioxide 24 mmol/L (22-30); EST GLOMERULAR FILTRATION RATE 49.8 ML/MIN; Glucose 137 mg/dL (74-106); MAGNESIUM 2.2 mg/dL (1.6-2.3); Potassium 4.4 mmol/L (3.5-5.1); SGOT/AST 46 U/L (14-36); SGPT/ALT 41 U/L (0-35); SODIUM 135 mmol/L (137-145); Total Protein 6.7 g/dL (6.3-8.2)
[2020-09-05 06:13] LABS: Vitamin B12 > 1000 pg/mL (239-931)
[2020-09-05] MEDS: SYNTHROID 25 MCG PO SCH (06:22)
[2020-09-05] MEDS: Namenda 5 MG PO SCH ×2 (09:08→21:30)
[2020-09-05] MEDS: NORVASC 5 MG PO SCH (09:08)
[2020-09-05] MEDS: Protonix 40MG Tablet PO SCH (09:08)
[2020-09-05] MEDS: ECOTRIN 81 MG PO SCH (09:08)
[2020-09-05] MEDS: Zocor 10MG PO SCH (09:09)
[2020-09-05] MEDS: Ditropan 5 MG PO SCH (09:09)
[2020-09-05] MEDS: FEOSOL 325 MG PO SCH ×2 (09:09→21:30)
[2020-09-05] MEDS: HUMALOG SQ PRN (21:30)
[2020-09-06] MEDS: SYNTHROID 25 MCG PO SCH (07:27)
--- NOTE | 2020-09-06 08:55 | PCM.NOTE ---
Date and Time: 09/06/20 0854 Subjective Assessment: patient is in no distress, denies pain. sitting up in a chair. she remains confused and disoriented Objective Exam General Appearance: no apparent distress, alert Skin Exam: normal color, warm, dry Respiratory Exam: normal breath sounds, lungs clear, No respiratory distress Cardiovascular Exam: regular rate/rhythm, normal heart sounds Gastrointestinal/Abdomen Exam: soft, No tenderness, No mass OBJECTIVE DATA Vital Signs: Vital Signs - 24 hr Temp Pulse Resp BP Pulse Ox 09/06/20 08:00 98.5 F 78 18 127/58 98 09/05/20 20:00 98 F 92 H 12 128/55 96 09/05/20 09:28 98.8 F 79 20 140/68 97 Pain Assessment - Last Documented Pain Intensity 0 Pain Scale Used 0-10 Pain Scale,FLACC Intake and Output: Intake & Output 09/03/20 09/04/20 09/05/20 09/06/20 11:59 11:59 11:59 11:59 Intake Total 340 410 100 Output Total 250 Balance 340 160 100 Weight 55.2 kg 55.2 kg Lab Results: Lab Results-Last 24 Hours 09/05/20 09/05/20 09/05/20 Range/Units 04:25 10:58 15:51 Segmented Neutrophils 71 H (36.0-66.0) % Lymphocytes (Manual) 28 (24-44) % Eosinophils (Manual) 1 (0.00-3.0) % Platelet Estimate NORMAL (NORMAL) RBC Morphology NORMAL POC Glucometer 172 H 155 H (74 to 106) mg/dL 09/05/20 09/06/20 Range/Units 21:22 07:07 Segmented Neutrophils (36.0-66.0) % Lymphocytes (Manual) (24-44) % Eosinophils (Manual) (0.00-3.0) % Platelet Estimate (NORMAL) RBC Morphology POC Glucometer 288 H 132 H (74 to 106) mg/dL Assessment/Plan (1) UTI due to extended-spectrum beta lactamase (ESBL) producing Escherichia coli Current Visit: Yes Status: Acute Assessment & Plan: fully treated, no more IV abx required Code(s): N39.0 - URINARY TRACT INFECTION, SITE NOT SPECIFIED; B96.29 - OTH ESCHERICHIA COLI THE CAUSE OF DISEASES CLASSD ELSWHR; Z16.12 - EXTENDED SPECTRUM BETA LACTAMASE (ESBL) RESISTANCE (2) Acute delirium Current Visit: Yes Status: Acute Code(s): R41.0 - DISORIENTATION, UNSPECIFIED (3) Weakness Current Visit: Yes Status: Acute Assessment & Plan: continue therapy Code(s): R53.1 - WEAKNESS
[2020-09-06] MEDS: Protonix 40MG Tablet PO SCH (09:28)
[2020-09-06] MEDS: Namenda 5 MG PO SCH ×2 (09:28→20:56)
[2020-09-06] MEDS: NORVASC 5 MG PO SCH (09:29)
[2020-09-06] MEDS: Zocor 10MG PO SCH (09:29)
[2020-09-06] MEDS: ECOTRIN 81 MG PO SCH (09:29)
[2020-09-06] MEDS: FEOSOL 325 MG PO SCH ×2 (09:29→20:56)
[2020-09-06] MEDS: Ditropan 5 MG PO SCH (09:29)
[2020-09-06] MEDS: HUMALOG SQ PRN ×2 (12:13→17:12)
[2020-09-07] MEDS: SYNTHROID 25 MCG PO SCH (06:32)
[2020-09-07] MEDS: FEOSOL 325 MG PO SCH ×2 (10:16→21:30)
[2020-09-07] MEDS: Namenda 5 MG PO SCH ×2 (10:16→21:30)
[2020-09-07] MEDS: Zocor 10MG PO SCH (10:16)
[2020-09-07] MEDS: Protonix 40MG Tablet PO SCH (10:16)
[2020-09-07] MEDS: ECOTRIN 81 MG PO SCH (10:16)
[2020-09-07] MEDS: Ditropan 5 MG PO SCH (10:16)
[2020-09-07] MEDS: NORVASC 5 MG PO SCH (10:16)
[2020-09-07] MEDS: HUMALOG SQ PRN (13:07)
[2020-09-08] MEDS: SYNTHROID 25 MCG PO SCH (06:40)
--- NOTE | 2020-09-08 06:50 | PCM.NOTE ---
Date and Time: 09/08/20 0649 Subjective Assessment: patient denies any problems or concerns, no pain. remains pleasantly disoriented Objective Exam General Appearance: no apparent distress, alert Neurologic Exam: alert, No oriented x 3 Skin Exam: normal color, warm, dry Respiratory Exam: normal breath sounds, lungs clear, No respiratory distress Cardiovascular Exam: regular rate/rhythm, normal heart sounds Gastrointestinal/Abdomen Exam: soft, No tenderness, No mass Extremity Exam: normal inspection, normal range of motion OBJECTIVE DATA Vital Signs: Vital Signs - 24 hr Temp Pulse Resp BP Pulse Ox 09/07/20 20:00 97.9 F 87 12 128/58 98 09/07/20 07:24 98.3 F 96 H 18 139/71 98 Pain Assessment - Last Documented Pain Intensity 0 Pain Scale Used 0-10 Pain Scale,FLACC Intake and Output: Intake & Output 09/05/20 09/06/20 09/07/20 09/08/20 11:59 11:59 11:59 11:59 Intake Total 410 100 480 420 Output Total 250 350 Balance 160 100 130 420 Weight 55.2 kg Lab Results: Lab Results-Last 24 Hours 09/07/20 09/07/20 09/07/20 Range/Units 07:04 11:23 15:53 POC Glucometer 151 H 243 H 172 H (74 to 106) mg/dL 09/07/20 Range/Units 20:26 POC Glucometer 192 H (74 to 106) mg/dL Assessment/Plan (1) UTI due to extended-spectrum beta lactamase (ESBL) producing Escherichia coli Current Visit: Yes Status: Acute Assessment & Plan: resolved, fully treated Code(s): N39.0 - URINARY TRACT INFECTION, SITE NOT SPECIFIED; B96.29 - OTH ESCHERICHIA COLI THE CAUSE OF DISEASES CLASSD ELSWHR; Z16.12 - EXTENDED SPECTRUM BETA LACTAMASE (ESBL) RESISTANCE (2) Acute delirium Current Visit: Yes Status: Acute Code(s): R41.0 - DISORIENTATION, UNSPECIFIED (3) Weakness Current Visit: Yes Status: Acute Code(s): R53.1 - WEAKNESS
[2020-09-08] MEDS: FEOSOL 325 MG PO SCH ×2 (09:10→21:01)
[2020-09-08] MEDS: Namenda 5 MG PO SCH ×2 (09:10→21:01)
[2020-09-08] MEDS: NORVASC 5 MG PO SCH (09:10)
[2020-09-08] MEDS: Ditropan 5 MG PO SCH (09:10)
[2020-09-08] MEDS: Protonix 40MG Tablet PO SCH (09:10)
[2020-09-08] MEDS: ECOTRIN 81 MG PO SCH (09:10)
[2020-09-08] MEDS: Zocor 10MG PO SCH (09:10)
[2020-09-08] MEDS: HUMALOG SQ PRN ×2 (12:00→21:11)
[2020-09-09] MEDS: SYNTHROID 25 MCG PO SCH (06:01)
[2020-09-09] MEDS: ECOTRIN 81 MG PO SCH (09:21)
[2020-09-09] MEDS: Protonix 40MG Tablet PO SCH (09:21)
[2020-09-09] MEDS: FEOSOL 325 MG PO SCH ×2 (09:21→21:03)
[2020-09-09] MEDS: Namenda 5 MG PO SCH ×2 (09:21→21:02)
[2020-09-09] MEDS: Zocor 10MG PO SCH (09:22)
[2020-09-09] MEDS: Ditropan 5 MG PO SCH (09:22)
[2020-09-09] MEDS: NORVASC 5 MG PO SCH (09:22)
[2020-09-09] MEDS: HUMALOG SQ PRN ×2 (11:47→21:17)
[2020-09-10] MEDS: SYNTHROID 25 MCG PO SCH (05:51)
[2020-09-10] MEDS: Protonix 40MG Tablet PO SCH (10:17)
[2020-09-10] MEDS: FEOSOL 325 MG PO SCH ×2 (10:17→21:26)
[2020-09-10] MEDS: Namenda 5 MG PO SCH ×2 (10:17→21:26)
[2020-09-10] MEDS: Ditropan 5 MG PO SCH (10:17)
[2020-09-10] MEDS: NORVASC 5 MG PO SCH (10:17)
[2020-09-10] MEDS: ECOTRIN 81 MG PO SCH (10:17)
[2020-09-10] MEDS: Zocor 10MG PO SCH (10:17)
[2020-09-10] MEDS: HUMALOG SQ PRN ×2 (12:15→21:34)
[2020-09-11] MEDS ORDERED: Fosamax 70 MG PO SCH (06:00)
[2020-09-11] MEDS: SYNTHROID 25 MCG PO SCH (06:07)
--- NOTE | 2020-09-11 08:54 | PCM.NOTE ---
Date and Time: 09/11/20 0851 Subjective Assessment: patient alert, pleasant, voices no complaints or concerns today Objective Exam General Appearance: no apparent distress, alert Respiratory Exam: normal breath sounds, lungs clear, No respiratory distress Cardiovascular Exam: regular rate/rhythm, normal heart sounds Gastrointestinal/Abdomen Exam: soft, No tenderness, No mass Extremity Exam: normal inspection, normal range of motion OBJECTIVE DATA Vital Signs: Vital Signs - 24 hr Temp Pulse Resp BP Pulse Ox 09/10/20 21:00 98.5 F 96 H 20 138/65 98 Pain Assessment - Last Documented Pain Intensity 0 Pain Scale Used 0-10 Pain Scale,FLACC Intake and Output: Intake & Output 09/08/20 09/09/20 09/10/20 09/11/20 10:59 10:59 11:59 11:59 Intake Total 490 Balance 490 Weight 54.8 kg Lab Results: Lab Results-Last 24 Hours 09/10/20 09/10/20 09/10/20 Range/Units 11:33 16:14 21:28 POC Glucometer 262 H 116 H 240 H (74 to 106) mg/dL 09/11/20 Range/Units 07:09 POC Glucometer 147 H (74 to 106) mg/dL Assessment/Plan (1) UTI due to extended-spectrum beta lactamase (ESBL) producing Escherichia coli Current Visit: Yes Status: Acute Assessment & Plan: fully treated, will repeat u/a with reflex culture today. may need to consider ECF placement due to dementia, disposition pending family preference. Code(s): N39.0 - URINARY TRACT INFECTION, SITE NOT SPECIFIED; B96.29 - OTH ESCHERICHIA COLI THE CAUSE OF DISEASES CLASSD ELSWHR; Z16.12 - EXTENDED SPECTRUM BETA LACTAMASE (ESBL) RESISTANCE (2) Acute delirium Current Visit: Yes Status: Acute Assessment & Plan: stable, checking labs and u/a today. patient remains demented and may require ecf care vs home sitters/care based on family preference. Code(s): R41.0 - DISORIENTATION, UNSPECIFIED (3) Weakness Current Visit: Yes Status: Acute Code(s): R53.1 - WEAKNESS
[2020-09-11] MEDS: Zocor 10MG PO SCH (09:46)
[2020-09-11] MEDS: ECOTRIN 81 MG PO SCH (09:46)
[2020-09-11] MEDS: Protonix 40MG Tablet PO SCH (09:46)
[2020-09-11] MEDS: NORVASC 5 MG PO SCH (09:46)
[2020-09-11] MEDS: FEOSOL 325 MG PO SCH ×2 (09:46→22:11)
[2020-09-11] MEDS: Ditropan 5 MG PO SCH (09:46)
[2020-09-11] MEDS: Namenda 5 MG PO SCH ×2 (09:46→22:12)
[2020-09-11 09:49] LABS: Absolute Neutrophil Ct (ANC) 3.43 (1.4-6.9); BASOPHIL % 0.5 % (0.0-0.4); Basophil (Absolute #) 0.03 (0-0.4); Eosinophil % 1.6 % (0.00-5.0); Eosinophil (Absolute #) 0.09 (0-0.5); Hematocrit 32.6 % (35-47); Hemoglobin 10.1 gm/dl (12.0-16.0); Lymphocyte (Absolute #) 1.71 (1.0-4.6); Lymphocytes % 29.8 % (24.0-44.0); Mean Cell Volume 92.4 fl (78-100); Mean Corpuscular Hemoglobin 28.6 pg (26-32); Mean Platelet Volume 8.4 fl (7.5-11.0); Monocyte (Absolute #) 0.47 (0.0-1.3); Monocytes % 8.2 % (0.0-12.0); Neutrophil % 59.9 % (36.0-66.0); Platelet Count 511 K/mm3 (150-450); Red Blood Count 3.53 M/mm3 (4.1-5.4); Red Cell Distribution Width 14.6 % (11.5-14.0); White Blood Count 5.7 K/mm3 (4.0-10.5)
[2020-09-11 09:56] LABS: ANION GAP 10.9 MEQ/L (5-15); Calcium 9.3 mg/dL (8.4-10.2); Creatinine 1 1.27 mg/dL (0.52-1.04); EST GLOMERULAR FILTRATION RATE 42.2 ML/MIN; Potassium 4.1 mmol/L (3.5-5.1)
[2020-09-11] MEDS ORDERED: Aplisol ID SCH (10:00)
[2020-09-11 15:38] LABS: Appearance SLIGHTLY CLOUDY (CLEAR); Bacteria RARE /HPF (NEGATIVE); Bilirubin NEGATIVE (NEGATIVE); Blood NEGATIVE Ery/ul (0-5); Epithelial Cells RARE /HPF (FEW); Glucose NEGATIVE (NEGATIVE); Ketones NEGATIVE (NEGATIVE); Leukocyte Esterase NEGATIVE (NEGATIVE); Mucus SLIGHT /HPF (NEGATIVE); Nitrite NEGATIVE (NEGATIVE); Protein,Urine Dip NEGATIVE (Negative); Specific Gravity 1.017 (1.005-1.025); Urobilinogen NEGATIVE mg/dL (0-1)
[2020-09-12] MEDS: SYNTHROID 25 MCG PO SCH (06:01)
[2020-09-12] MEDS: NORVASC 5 MG PO SCH (09:09)
[2020-09-12] MEDS: ECOTRIN 81 MG PO SCH (09:09)
[2020-09-12] MEDS: Ditropan 5 MG PO SCH (09:09)
[2020-09-12] MEDS: FEOSOL 325 MG PO SCH ×2 (09:09→21:01)
[2020-09-12] MEDS: Namenda 5 MG PO SCH ×2 (09:09→21:01)
[2020-09-12] MEDS: Zocor 10MG PO SCH (09:09)
[2020-09-12] MEDS: Protonix 40MG Tablet PO SCH (09:09)
[2020-09-12] MEDS: HUMALOG SQ PRN (11:47)
[2020-09-13 05:49] LABS: Calcium 9.2 mg/dL (8.4-10.2); Creatinine 1 1.22 mg/dL (0.52-1.04); EST GLOMERULAR FILTRATION RATE 44.2 ML/MIN; Potassium 3.9 mmol/L (3.5-5.1)
[2020-09-13] MEDS: SYNTHROID 25 MCG PO SCH (06:22)
[2020-09-13 07:27] VITALS: BP 120/59; PULSE 92
--- NOTE | 2020-09-13 08:15 | PCM.DS ---
Discharge Summary Date of Admission: 08/30/20 18:30 Admitting Physician: ANNA ROBIN Primary Care Provider: HERBERT ALCANTAR Allergies Allergies Penicillins Allergy (Verified 03/20/19 07:27) Hospital Summary - Hospital Course Hospital Course: patient was admitted following hospitalization at [facility] for ESBL+ UTI, she has improved. her functional status has improved well with therapy in swingbed, she has no complaints. will return to assisted living - Vitals & Intake/Output Vital Signs: Vital Signs Temperature 98.9 F 09/13/20 07:26 Pulse Rate 92 H 09/13/20 07:26 Respiratory Rate 16 09/13/20 07:26 Blood Pressure 120/59 09/13/20 07:26 O2 Sat by Pulse Oximetry 97 09/13/20 07:26 Intake & Output: Intake & Output 09/10/20 09/11/20 09/12/20 09/13/20 11:59 11:59 11:59 11:59 Intake Total 490 210 Output Total 450 300 Balance 490 -240 -300 Weight 54.8 kg - Lab Result Diagrams: 09/11/20 09:15 09/13/20 04:10 Lab Results-Last 24 Hrs: Lab Results-Last 24 Hours 09/12/20 09/12/20 09/12/20 Range/Units 11:28 16:27 20:58 Sodium (137-145) mmol/L Potassium (3.5-5.1) mmol/L Chloride (98-107) mmol/L Carbon Dioxide (22-30) mmol/L Anion Gap (5-15) MEQ/L BUN (7-17) mg/dL Creatinine (0.52-1.04) mg/dL Estimated GFR ML/MIN Glucose (74-106) mg/dL POC Glucometer 205 H 194 H 225 H (74 to 106) mg/dL Calcium (8.4-10.2) mg/dL 09/13/20 09/13/20 Range/Units 04:10 07:03 Sodium 138 (137-145) mmol/L Potassium 3.9 (3.5-5.1) mmol/L Chloride 104 (98-107) mmol/L Carbon Dioxide 24 (22-30) mmol/L Anion Gap 13.0 (5-15) MEQ/L BUN 27 H (7-17) mg/dL Creatinine 1.22 H (0.52-1.04) mg/dL Estimated GFR 44.2 ML/MIN Glucose 160 H (74-106) mg/dL POC Glucometer 153 H (74 to 106) mg/dL Calcium 9.2 (8.4-10.2) mg/dL Micro Results-Entire Visit: Accuchecks Date 09/13/20 Date 09/12/20 Date 09/12/20 - Procedures and Test Procedures and Tests throughout Hospitalization: Therapy Orders & Screens 08/30/20 18:28 PT Eval & Treat ( Order) ONCE Reason for Eval:: DECONDITIONING R/T UTI, CKD Diagnosis: DECONDITIONING R/T UTI, CKD 08/31/20 09:28 OT Eval and Treat ( Order) ROUTINE Comment: Consulting Provider: Physician Instructions: Reason For Exam: Diagnosis: DECONDITIONING R/T UTI, CKD 08/31/20 15:08 PT Clarification Order ROUTINE Comment: Physician Instructions: Reason For Exam: PT Clarification: PT TO RX 5X/WK UNTIL D/C TO ADDRESS FUNCTIONAL MOBILITY AND GAIT TRAINING, THER EX, BALANCE ACTIVITIES, AND PT. ED. RE: SAFETY AWARENESS TO MAXIMIZ FUNCTIONAL POTENTIAL. 08/31/20 16:31 OT Clarification Order ONCE Comment: Physician Instructions: Eval & Treat Reason For Exam: Deconditioning R/T UTI, CKD OT Clarification: OT to see patient 5x/week excluding weekends and holidays to address decreased functional strength and endurance, decreased safety awareness, and decreased independence with I/ADLs including evaluation/re-assessment, therapeutic activity /ADLs, therapeutic exercise Discharge Exam General Appearance: no apparent distress Neurologic Exam: alert Respiratory Exam: normal breath sounds, lungs clear, No respiratory distress Cardiovascular Exam: regular rate/rhythm, normal heart sounds Gastrointestinal/Abdomen Exam: soft, No tenderness, No mass Extremity Exam: normal inspection, normal range of motion Skin Exam: normal color, warm, dry Final Diagnosis/Problem List - Final Discharge Diagnosis/Problem (1) UTI due to extended-spectrum beta lactamase (ESBL) producing Escherichia coli Current Visit: Yes Status: Acute Code(s): N39.0 - URINARY TRACT INFECTION, SITE NOT SPECIFIED; B96.29 - OTH ESCHERICHIA COLI THE CAUSE OF DISEASES CLASSD ELSWHR; Z16.12 - EXTENDED SPECTRUM BETA LACTAMASE (ESBL) RESISTANCE (2) Acute delirium Current Visit: Yes Status: Acute Code(s): R41.0 - DISORIENTATION, UNSPECIFIED (3) Weakness Current Visit: Yes Status: Acute Code(s): R53.1 - WEAKNESS (4) Diabetes mellitus Current Visit: Yes Status: Acute Assessment & Plan: pioglitazone discontinued at [facility], previous history of metformin side effects. recommend tradjenta at this time based on comorbidities and failure of other meds and side effects Code(s): E11.9 - TYPE 2 DIABETES MELLITUS WITHOUT COMPLICATIONS - Discharge Disposition: Home, Self-Care Condition: Stable Prescriptions: New Amlodipine Besylate 5 mg [Norvasc 5 mg] 5 mg PO QAM #30 tablet Linagliptin [Tradjenta] 5 mg PO DAILY #30 tablet Continue Levothyroxine Sodium 25 mcg PO 0600 Oxybutynin Chloride 5 mg [Ditropan 5 MG] 5 mg PO DAILY Pravastatin Sodium 10 mg PO DAILY Memantine HCl [Namenda] 10 mg PO BID Ferrous Sulfate 325 mg [Feosol 325 mg] 325 mg PO BID Cyanocobalamin 1000 Mcg/ml [Cyanocobalamin B-12 1000 MCG/ML] 1,000 mcg IM UD Calcium Carbonate 600 mg PO DAILY Aspirin [Aspirin EC] 81 mg PO DAILY Alendronate Sodium 70 mg [Fosamax 70 MG] 70 mg PO Q7D@0600 Acetaminophen 500 mg [Tylenol Extra Strength 500 mg] 1,000 mg PO Q4HPRN PRN PRN Reason: Pain Omeprazole 20 mg PO DAILY Discontinued Insulin Lispro [Humalog] 1 unit SQ UD PRN PRN Reason: Hyperglycemia Ertapenem Sodium 1 gm [Invanz 1 GM] 1 g IV DAILY Follow up with: MICHEL ARITA MD [NON-STAFF PHY W/O PRIVILEGES] - 09/14/20 10:30 am ANNA ROBIN MD [ACTIVE STAFF] -
[2020-09-13] MEDS ORDERED: Sodium Chloride 0.9% 500 ML 500 ML IV ONE (10:30)
[2020-09-13] MEDS ORDERED: Sodium Chloride 0.9% 1000 ML 1,000 ML ONE (10:31)
[2020-09-13 10:43] LABS: Hematocrit 31.9 % (35-47); Mean Cell Volume 91.1 fl (78-100); Mean Corpuscular Hemoglobin 28.6 pg (26-32); Mean Corpuscular Hgb Concent. 31.3 g/dl (32-36); Mean Platelet Volume 8.5 fl (7.5-11.0); Platelet Count 472 K/mm3 (150-450); Red Cell Distribution Width 14.9 % (11.5-14.0)
[2020-09-13 10:46] LABS: VBG BASE EXCESS -0.3 (-2.0-2.0); VBG HCO3- 21.5 meq/L (22-28); VBG HEMOGLOBIN 10.3; VBG O2 SATURATION 99.3 (95-100); VBG POTASSIUM 3.9 (3.5-5.1); VBG pH 7.51 (7.32-7.42)
[2020-09-13 10:55] LABS: BILIRUBIN,TOTAL 0.5 mg/dL (0.2-1.3); Calcium 9.4 mg/dL (8.4-10.2); Creatinine 1 1.47 mg/dL (0.52-1.04); EST GLOMERULAR FILTRATION RATE 35.7 ML/MIN; Potassium 3.8 mmol/L (3.5-5.1); Total Protein 7.2 g/dL (6.3-8.2)
[2020-09-13 11:05] VITALS: O2SAT 99
--- NOTE | 2020-09-13 11:28 | XRAY ---
Indication: Syncope. Comparison: March 22, 2019. Portable chest remains hyperinflated and clear. Heart is not enlarged. Bony thorax intact again with mild osteopenia and degenerative changes. Impression: Continued nonacute chest with chronic features.
[2020-09-13] MEDS ORDERED: Sodium Chloride 0.9% 1000 ML 1,000 ML IV SCH ×2 (12:00→12:15)
[2020-09-14 04:53] LABS: Absolute Neutrophil Ct (ANC) 8.64 (1.4-6.9); BASOPHIL % 0.1 % (0.0-0.4); Basophil (Absolute #) 0.01 (0-0.4); Eosinophil % 0.2 % (0.00-5.0); Eosinophil (Absolute #) 0.02 (0-0.5); Hematocrit 29.6 % (35-47); Hemoglobin 9.3 gm/dl (12.0-16.0); Lymphocyte (Absolute #) 1.86 (1.0-4.6); Lymphocytes % 16.4 % (24.0-44.0); Mean Cell Volume 91.1 fl (78-100); Mean Corpuscular Hemoglobin 28.6 pg (26-32); Mean Corpuscular Hgb Concent. 31.4 g/dl (32-36); Mean Platelet Volume 8.6 fl (7.5-11.0); Monocyte (Absolute #) 0.84 (0.0-1.3); Monocytes % 7.4 % (0.0-12.0); Neutrophil % 75.9 % (36.0-66.0); Platelet Count 389 K/mm3 (150-450); Red Blood Count 3.25 M/mm3 (4.1-5.4); Red Cell Distribution Width 14.9 % (11.5-14.0); White Blood Count 11.4 K/mm3 (4.0-10.5)
[2020-09-14 05:30] LABS: ANION GAP 11.8 MEQ/L (5-15); Calcium 8.9 mg/dL (8.4-10.2); Creatinine 1 1.11 mg/dL (0.52-1.04); EST GLOMERULAR FILTRATION RATE 49.3 ML/MIN; MAGNESIUM 2.1 mg/dL (1.6-2.3); Potassium 3.4 mmol/L (3.5-5.1)
== END 2020-09-13 10:28 | disposition home or self-care (01) | DRG 690 ==
LOC: EDSTATUS 12:10 → MED SURG 18:30 → INTOOBSV 18:30 → UNDOADMOB 18:30
PROVIDERS: ADMIT Family Medicine; ATTEND Family Medicine
DX: N39.0 Urinary tract infection, site not specified (principal); Z16.12 Extended spectrum beta lactamase (ESBL) resistance; B96.29 Other Escherichia coli [E. coli] as the cause of diseases classified elsewhere; R41.0 Disorientation, unspecified; R53.1 Weakness; Z79.899 Other long term (current) drug therapy; E11.22 Type 2 diabetes mellitus with diabetic chronic kidney disease; N18.9 Chronic kidney disease, unspecified; E05.90 Thyrotoxicosis, unspecified without thyrotoxic crisis or storm
CPT/HCPCS: 36415; 71045; 80048; 80053; 81001; 82607; 82805; 82947; 83605; 83735; 83921; 84443; 84484; 85025; 85027; 87493; 93005; 94760; J1335; J1817; J3420; 97110-GP; A9270-GY

== ENCOUNTER 2020-09-13 10:28 | Observation (INO) | payer MEDICARE ==
[2020-09-13] MEDS ORDERED: Ditropan 5 MG PO SCH (13:19)
[2020-09-13] MEDS ORDERED: Cyanocobalamin B-12 1000 MCG/ML IM SCH (13:19)
[2020-09-13] MEDS ORDERED: Protonix 40MG Tablet PO SCH (13:19)
[2020-09-13] MEDS ORDERED: TYLENOL EXTRA STRENGTH 500 MG PO PRN (13:19)
[2020-09-13] MEDS ORDERED: ECOTRIN 81 MG PO SCH (13:19)
[2020-09-13] MEDS ORDERED: Zocor 10MG PO SCH (13:19)
[2020-09-13] MEDS ORDERED: SYNTHROID 25 MCG PO SCH (13:19)
[2020-09-13] MEDS: HUMALOG SQ PRN ×2 (17:42→21:34)
[2020-09-13 19:39] LABS: Appearance SLIGHTLY CLOUDY (CLEAR); Bilirubin NEGATIVE (NEGATIVE); Blood NEGATIVE Ery/ul (0-5); Glucose 150 mg/dL (NEGATIVE); Hyaline Casts 0-2 /LPF (0-2); Ketones NEGATIVE (NEGATIVE); Leukocyte Esterase NEGATIVE (NEGATIVE); Mucus SLIGHT /HPF (NEGATIVE); Nitrite NEGATIVE (NEGATIVE); Protein,Urine Dip 30 (Negative); Specific Gravity 1.016 (1.005-1.025); Urobilinogen NEGATIVE mg/dL (0-1)
[2020-09-13] MEDS: Namenda 5 MG PO SCH (21:33)
[2020-09-13] MEDS: FEOSOL 325 MG PO SCH (21:33)
--- NOTE | 2020-09-14 07:32 | ERPHSYRPT ---
- Events Reason for Code Rapid: syncopal episode, other CPR initiated prior to MD arrival: No Physician Note: Code rapid called at approximately 10:[address] Sales responded. Upon arrival to the patient's room, nursing staff had spoken to patient's primary care physician. IV fluids initiated. Patient was alert and oriented x3 upon my arrival. However patient states she felt weak. Accu-Chek glucose was approximately 248. EKG performed showed sinus bradycardia at a rate of 41. There was no focal or lateralizing symptoms on neurologic exam. Lungs are clear. No respiratory distress. Patient was initially hypotensive in the 80s. However blood pressure gradually normalized with administration of IV fluids. Basic labs, TSH and troponin ordered. Chest x-ray ordered. Chest x-ray showed no acute pathology. Chronic features observed. TSH was 5.13. Troponin negative. Patient had a relatively large bowel movement shortly after code rapid was called. Bowel movement was nonbloody. Patient appears to be recovering well. Patient appears to be back at her baseline. Patient vitals are normalizing with administration of IV fluids. Dr. Aldana followed up and resume care shortly thereafter. Dr. Aldana aware of elevated TSH at 5.13.
[2020-09-14] MEDS ORDERED: MEDICATION INTERVENTION MC SCH (08:45)
--- NOTE | 2020-09-14 08:47 | PCM.SSS ---
History of Present Illness - Chief Complaint Chief Complaint: NEAR SYNCOPE History of Present Illness: is a 89 year old female who was set to discharge yesterday from a swingbed stay following a uti and weakness, she will return to assisted living and has done great in therapy. she developed hypotension and bradycardia, amlodipine has been stopped. her heart rate recovered, [place] ruled out. she is feeling well and has no complaints, will discharge home. plan to see Dr Mandujano in a week and he requested a 48 hour holter. - Review of Systems Constitutional: No Fever, No Chills Respiratory: No Cough, No Short Of Breath Cardiac: No Chest Pain, No Edema, No Syncope Abdominal/Gastrointestinal: No Abdominal Pain, No Nausea, No Vomiting, No Diarrhea Skin: No Rash All Other Systems: Reviewed and Negative Medications & Allergies Home Medications: Home Medication List Oxybutynin Chloride 5 mg [Ditropan 5 MG] 5 mg PO DAILY 03/20/19 [History Confirmed 09/13/20] Pravastatin Sodium 10 mg PO DAILY 03/20/19 [History Confirmed 09/13/20] Acetaminophen 500 mg [Tylenol Extra Strength 500 mg] 1,000 mg PO Q4HPRN PRN 08/31/20 [History Confirmed 09/13/20] Alendronate Sodium 70 mg [Fosamax 70 MG] 70 mg PO Q7D@0600 08/31/20 [History Confirmed 09/13/20] Aspirin [Aspirin EC] 81 mg PO DAILY 08/31/20 [History Confirmed 09/13/20] Calcium Carbonate 600 mg PO DAILY 08/31/20 [History Confirmed 09/13/20] Cyanocobalamin 1000 Mcg/ml [Cyanocobalamin B-12 1000 MCG/ML] 1,000 mcg IM UD 08/31/20 [History Confirmed 09/13/20] Ferrous Sulfate 325 mg [Feosol 325 mg] 325 mg PO BID 08/31/20 [History Confirmed 09/13/20] Memantine HCl [Namenda] 10 mg PO BID 08/31/20 [History Confirmed 09/13/20] Omeprazole 20 mg PO DAILY 08/31/20 [History Confirmed 09/13/20] Linagliptin [Tradjenta] 5 mg PO DAILY #30 tablet 09/13/20 [Rx Confirmed 09/13/20] Levothyroxine Sodium 50 Mcg [Synthroid 50 Mcg] 50 mcg PO DAILY #30 tablet 09/14/20 [Rx] Allergies/Adverse Reactions: Allergies Allergy/AdvReac Type Severity Reaction Status Date / Time Penicillins Allergy Verified 09/13/20 12:22 - Past Medical History Past Medical History: Yes Neurological History: Dementia, Peripheral Neuropathy ENT History: Macular Degeneration Cardiac History: No Pertinent History Respiratory History: No Pertinent History Endocrine Medical History: Diabetes Type II, Hyperthyroidism Musculoskelatal History: Arthritis, Fractures GI Medical History: No Pertinent History History: Renal Disease Comment: HX R FEMUR FX W/ ORIF SEVERAL YEARS AGO Chronic UTI;Sees Dr Lorenzana. FX L ft current. FX R wrist. Anemia - Past Surgical History Past Surgical History: Yes Neuro Surgical History: No Pertinent History Cardiac History: No Pertinent History Respiratory Surgery: Other GI Surgical History: No Pertinent History Genitourinary Surgical Hx: No Pertinent History Musculskeletal Surgical Hx: Orthopedic Surgery Female Surgical History: No Pertinent History Other Surgical History: bilat hip replaced,foot surgery,carpal tunnel. hernia surgery. breast mass removed - Social History Smoking Status: Never smoker Exposure to second hand smoke: No Alcohol: None Drug Use: none - Physical Exam Vital Signs: Vital Signs - 24 hr Temp Pulse Resp BP Pulse Ox 09/14/20 08:00 98.9 F 94 H 16 134/73 95 09/14/20 07:16 94 L 09/14/20 04:00 18 09/14/20 03:59 97.9 F 97 H 18 150/64 98 09/14/20 00:00 18 09/13/20 23:45 98.1 F 88 18 130/61 99 09/13/20 20:00 20 09/13/20 19:56 98.2 F 84 20 131/61 99 09/13/20 19:50 99 09/13/20 15:21 97.3 F 66 16 141/60 100 09/13/20 14:53 97.3 F 66 16 141/60 100 General Appearance: no apparent distress Neurologic Exam: alert, oriented x 3 Respiratory Exam: normal breath sounds, lungs clear, No respiratory distress Cardiovascular Exam: regular rate/rhythm, normal heart sounds, normal peripheral pulses Gastrointestinal/Abdomen Exam: soft, normal bowel sounds, No tenderness, No mass Extremity Exam: normal inspection, normal range of motion, pelvis stable Skin Exam: normal color, warm, dry, No rash Results - Labs Lab/Micro Results: Lab Results-Last 24 Hours 09/13/20 09/13/20 09/13/20 Range/Units 12:30 15:43 18:45 POC Glucometer (74 to 106) mg/dL Troponin I < 0.012 < 0.012 < 0.012 (0.000-0.034) ng/mL Urine Color (YELLOW) Urine Appearance (CLEAR) Urine pH (5-6) Ur Specific [place] (1.005-1.025) Urine Protein (Negative) Urine Ketones (NEGATIVE) Urine Blood (0-5) [place]/ul Urine Nitrite (NEGATIVE) Urine Bilirubin (NEGATIVE) Urine Urobilinogen (0-1) mg/dL Ur Leukocyte Esterase (NEGATIVE) Urine WBC (Auto) (0-5) /HPF Urine RBC (Auto) (0-2) /HPF U Hyaline Cast (Auto) (0-2) /LPF U Epithel Cells (Auto) (FEW) /HPF Urine Bacteria (Auto) (NEGATIVE) /HPF Urine Mucus (Auto) (NEGATIVE) /HPF Urine Culture Reflexed (NO) Urine Glucose (NEGATIVE) mg/dL 09/13/20 09/13/20 09/13/20 Range/Units 19:25 20:53 21:40 POC Glucometer 248 H (74 to 106) mg/dL Troponin I < 0.012 (0.000-0.034) ng/mL Urine Color YELLOW (YELLOW) Urine Appearance SLIGHTLY CLOUDY (CLEAR) Urine pH 6.0 (5-6) Ur Specific [place] 1.016 (1.005-1.025) Urine Protein 30 (Negative) Urine Ketones NEGATIVE (NEGATIVE) Urine Blood NEGATIVE (0-5) Quentin/ul Urine Nitrite NEGATIVE (NEGATIVE) Urine Bilirubin NEGATIVE (NEGATIVE) Urine Urobilinogen NEGATIVE (0-1) mg/dL Ur Leukocyte Esterase NEGATIVE (NEGATIVE) Urine WBC (Auto) 6-10 (0-5) /HPF Urine RBC (Auto) 3-5 (0-2) /HPF U Hyaline Cast (Auto) 0-2 (0-2) /LPF U Epithel Cells (Auto) NONE (FEW) /HPF Urine Bacteria (Auto) NONE (NEGATIVE) /HPF Urine Mucus (Auto) SLIGHT (NEGATIVE) /HPF Urine Culture Reflexed ORDERED SEPARATELY (NO) Urine Glucose 150 (NEGATIVE) mg/dL 09/14/20 Range/Units 06:58 POC Glucometer 124 H (74 to 106) mg/dL Troponin I (0.000-0.034) ng/mL Urine Color (YELLOW) Urine Appearance (CLEAR) Urine pH (5-6) Ur Specific [place] (1.005-1.025) Urine Protein (Negative) Urine Ketones (NEGATIVE) Urine Blood (0-5) Quentin/ul Urine Nitrite (NEGATIVE) Urine Bilirubin (NEGATIVE) Urine Urobilinogen (0-1) mg/dL Ur Leukocyte Esterase (NEGATIVE) Urine WBC (Auto) (0-5) /HPF Urine RBC (Auto) (0-2) /HPF U Hyaline Cast (Auto) (0-2) /LPF U Epithel Cells (Auto) (FEW) /HPF Urine Bacteria (Auto) (NEGATIVE) /HPF Urine Mucus (Auto) (NEGATIVE) /HPF Urine Culture Reflexed (NO) Urine Glucose (NEGATIVE) mg/dL Accuchecks Date 09/14/20 Date 09/13/20 Time 07:30 Time 16:30 - Other Procedures and Tests Respiratory Therapy 09/13/20 20:06 Oxygen Nasal Cannula 2 lpm Assessment/Plan (1) Near syncope Current Visit: Yes Status: Acute Assessment & Plan: hold amlodipine, 48 hour holter and f/u with Dr Mandujano as requested (2) Diabetes mellitus Current Visit: No Status: Acute Code(s): E11.9 - TYPE 2 DIABETES MELLITUS WITHOUT COMPLICATIONS (3) Scapho-lunate dissociation Current Visit: No Status: Acute Qualifiers: Laterality: right Qualified Code(s): M25.331 - Other instability, right wrist Assessment & Plan: patient currently in walker boot, with weakness and unsteady gait unable to stand from a standard armchair, would benefit from lift chair. Code(s): M25.339 - OTHER INSTABILITY, UNSPECIFIED WRIST (4) UTI due to extended-spectrum beta lactamase (ESBL) producing Escherichia coli Current Visit: No Status: Acute Code(s): N39.0 - URINARY TRACT INFECTION, SITE NOT SPECIFIED; B96.29 - OTH ESCHERICHIA COLI THE CAUSE OF DISEASES CLASSD ELSWHR; Z16.12 - EXTENDED SPECTRUM BETA LACTAMASE (ESBL) RESISTANCE (5) Hypothyroidism Current Visit: Yes Status: Acute Assessment & Plan: tsh over 5, increase from 25 to 50mcg daily Code(s): E03.9 - HYPOTHYROIDISM, UNSPECIFIED Hospital Summary - Vitals & Intake/Output Vital Signs: Vital Signs Temperature 98.9 F 09/14/20 08:00 Pulse Rate 94 H 09/14/20 08:00 Respiratory Rate 16 09/14/20 08:00 Blood Pressure 134/73 09/14/20 08:00 O2 Sat by Pulse Oximetry 95 09/14/20 08:00 Intake & Output: Intake & Output 09/11/20 09/12/20 09/13/20 09/14/20 11:59 11:59 11:59 11:59 Intake Total 1020 Output Total 725 Balance 295 Weight 53.5 kg - Lab Lab Results-Last 24 Hrs: Lab Results-Last 24 Hours 09/13/20 09/13/20 09/13/20 Range/Units 12:30 15:43 18:45 POC Glucometer (74 to 106) mg/dL Troponin I < 0.012 < 0.012 < 0.012 (0.000-0.034) ng/mL Urine Color (YELLOW) Urine Appearance (CLEAR) Urine pH (5-6) Ur Specific [place] (1.005-1.025) Urine Protein (Negative) Urine Ketones (NEGATIVE) Urine Blood (0-5) Quentin/ul Urine Nitrite (NEGATIVE) Urine Bilirubin (NEGATIVE) Urine Urobilinogen (0-1) mg/dL Ur Leukocyte Esterase (NEGATIVE) Urine WBC (Auto) (0-5) /HPF Urine RBC (Auto) (0-2) /HPF U Hyaline Cast (Auto) (0-2) /LPF U Epithel Cells (Auto) (FEW) /HPF Urine Bacteria (Auto) (NEGATIVE) /HPF Urine Mucus (Auto) (NEGATIVE) /HPF Urine Culture Reflexed (NO) Urine Glucose (NEGATIVE) mg/dL 09/13/20 09/13/20 09/13/20 Range/Units 19:25 20:53 21:40 POC Glucometer 248 H (74 to 106) mg/dL Troponin I < 0.012 (0.000-0.034) ng/mL Urine Color YELLOW (YELLOW) Urine Appearance SLIGHTLY CLOUDY (CLEAR) Urine pH 6.0 (5-6) Ur Specific [place] 1.016 (1.005-1.025) Urine Protein 30 (Negative) Urine Ketones NEGATIVE (NEGATIVE) Urine Blood NEGATIVE (0-5) Quentin/ul Urine Nitrite NEGATIVE (NEGATIVE) Urine Bilirubin NEGATIVE (NEGATIVE) Urine Urobilinogen NEGATIVE (0-1) mg/dL Ur Leukocyte Esterase NEGATIVE (NEGATIVE) Urine WBC (Auto) 6-10 (0-5) /HPF Urine RBC (Auto) 3-5 (0-2) /HPF U Hyaline Cast (Auto) 0-2 (0-2) /LPF U Epithel Cells (Auto) NONE (FEW) /HPF Urine Bacteria (Auto) NONE (NEGATIVE) /HPF Urine Mucus (Auto) SLIGHT (NEGATIVE) /HPF Urine Culture Reflexed ORDERED SEPARATELY (NO) Urine Glucose 150 (NEGATIVE) mg/dL 09/14/20 Range/Units 06:58 POC Glucometer 124 H (74 to 106) mg/dL Troponin I (0.000-0.034) ng/mL Urine Color (YELLOW) Urine Appearance (CLEAR) Urine pH (5-6) Ur Specific [place] (1.005-1.025) Urine Protein (Negative) Urine Ketones (NEGATIVE) Urine Blood (0-5) Quentin/ul Urine Nitrite (NEGATIVE) Urine Bilirubin (NEGATIVE) Urine Urobilinogen (0-1) mg/dL Ur Leukocyte Esterase (NEGATIVE) Urine WBC (Auto) (0-5) /HPF Urine RBC (Auto) (0-2) /HPF U Hyaline Cast (Auto) (0-2) /LPF U Epithel Cells (Auto) (FEW) /HPF Urine Bacteria (Auto) (NEGATIVE) /HPF Urine Mucus (Auto) (NEGATIVE) /HPF Urine Culture Reflexed (NO) Urine Glucose (NEGATIVE) mg/dL Micro Results-Entire Visit: Accuchecks Date 09/14/20 Date 09/13/20 Time 07:30 Time 16:30 - Procedures and Test Procedures and Tests throughout Hospitalization: Therapy Orders & Screens 09/13/20 20:06 Oxygen Nasal Cannula 2 lpm Comment: Diagnosis: NEAR SYNCOPE - Discharge Disposition: Home, Self-Care Condition: Stable Prescriptions: New Levothyroxine Sodium 50 Mcg [Synthroid 50 Mcg] 50 mcg PO DAILY #30 tablet Continue Oxybutynin Chloride 5 mg [Ditropan 5 MG] 5 mg PO DAILY Pravastatin Sodium 10 mg PO DAILY Memantine HCl [Namenda] 10 mg PO BID Ferrous Sulfate 325 mg [Feosol 325 mg] 325 mg PO BID Cyanocobalamin 1000 Mcg/ml [Cyanocobalamin B-12 1000 MCG/ML] 1,000 mcg IM UD Calcium Carbonate 600 mg PO DAILY Aspirin [Aspirin EC] 81 mg PO DAILY Alendronate Sodium 70 mg [Fosamax 70 MG] 70 mg PO Q7D@0600 Acetaminophen 500 mg [Tylenol Extra Strength 500 mg] 1,000 mg PO Q4HPRN PRN PRN Reason: Pain Omeprazole 20 mg PO DAILY Linagliptin [Tradjenta] 5 mg PO DAILY #30 tablet Discontinued Levothyroxine Sodium 25 mcg PO 0600 Amlodipine Besylate 5 mg [Norvasc 5 mg] 5 mg PO QAM #30 tablet Outpatient Orders: Holter Monitor Facility: [facility], Location: RESPIRATORY THERAPY Follow up with: ANNA ROBIN MD [ACTIVE STAFF] - JOANA MANDUJANO [CONSULTING PHYSICIAN] - 1 Week
[2020-09-14] MEDS ORDERED: Calcium 500MG W/Vit D Tablet PO SCH (10:00)
[2020-09-14] MEDS ORDERED: NON-FORMULARY ITEM PO SCH (10:00)
[2020-09-14] MEDS: FEOSOL 325 MG PO SCH (10:15)
[2020-09-14] MEDS: Namenda 5 MG PO SCH (10:15)
[2020-09-14 12:01] VITALS: BP 130/56; PULSE 85; O2SAT 98
[2020-09-18] MEDS ORDERED: Fosamax 70 MG PO SCH (06:00)
[2020-10-03] MEDS ORDERED: Cyanocobalamin B-12 1000 MCG/ML IM SCH (09:00)
== END 2020-09-14 13:10 | disposition home or self-care (01) ==
LOC: MED SURG 10:28
PROVIDERS: ADMIT Family Medicine; ATTEND Family Medicine
DX: R55 Syncope and collapse (principal); R00.1 Bradycardia, unspecified; I10 Essential (primary) hypertension; D50.9 Iron deficiency anemia, unspecified; I95.9 Hypotension, unspecified; Z79.899 Other long term (current) drug therapy; E11.9 Type 2 diabetes mellitus without complications; M25.331 Other instability, right wrist; N39.0 Urinary tract infection, site not specified; B96.29 Other Escherichia coli [E. coli] as the cause of diseases classified elsewhere; Z16.12 Extended spectrum beta lactamase (ESBL) resistance; E03.9 Hypothyroidism, unspecified
CPT/HCPCS: 36415; 73630; 81001; 82947; 84484; 87086; 93225; 93268; 94760; G0378; Q3014; J1817; A9270-GY